=== PATIENT | male | born 1955 | race Caucasian/White ===

== ENCOUNTER 2016-12-05 23:56 | Emergency (ER) | payer OTHER ==
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
[2016-12-06 01:02] VITALS: BP 127/84
--- NOTE | 2016-12-06 07:50 | RAD ---
INDICATION: Injury. Sternal pain COMPARISON: None TECHNIQUE: AP, lateral, and oblique views were obtained. FINDINGS: There is no plain radiographic evidence of a sternal fracture. If there is persistent concern, CT is more sensitive in evaluating the sternum.. There is a mild underlying scoliotic deformity. The soft tissues are normal IMPRESSION: NO ACUTE STERNAL FRACTURE IS IDENTIFIED.
== END 2016-12-06 01:01 | disposition home or self-care (01) ==
LOC: ED 23:56
DX: S20.219A Contusion of unspecified front wall of thorax, initial encounter (principal); W50.0XXA Accidental hit or strike by another person, initial encounter; Y93.75 Activity, martial arts; Y92.89 Other specified places as the place of occurrence of the external cause
CPT/HCPCS: 71120; 99282

== ENCOUNTER 2019-04-08 20:02 | Emergency (ER) | payer OTHER ==
--- OUTSIDE RECORDS SUMMARY | 2019-04-08 20:08 | XMS REPORT | Continuity of Care Document ---
:1955 External Reference #:[id number] Author Name Eva Owusu, [facility] Address [address] [place] [id number] Problems Active Problems Provider Date Tubular adenoma of colon Leonel Lofton MD Onset: 01/22/2019 Social History Type Date Description Comments Sex Unknown Allergies, Adverse Reactions, Alerts Active Allergies Reaction Severity Comments Date IVP Dye Anaphylaxis due to substance Severe 12/28/2018 Medications Active Medications SIG Qnty Indications Ordering Provider Date Denavir apply every 2 10gm Marla Powell MD 02/21/2019 1% Cream hours while awake for 4 days starting at first sign of cold sore History Medications No Active Medications Leonel Lofton MD 01/22/2019 - 02/21/2019 Immunizations CPT Code Status Date Vaccine Lot # [id number] Given 02/06/2019 Shingrix - Shingles vaccine, Herpes Zoster [id number] Given 01/22/2019 Flu < 65 years [id number] 85852 Given 02/22/2017 Influenza Virus Vaccine, Quadrivalent, Split, Im Use 0.25ML 85287 Given 02/22/2017 Influenza Virus Vaccine, Quadrivalent, Split, Im Use 0.25ML 47997 Given 02/22/2017 Influenza Virus Vaccine, Quadrivalent, Split, Im Use 0.25ML 31596 Given 02/22/2017 Flu < 65 years 61977 Given 02/22/2017 Influenza Virus Vaccine, Quadrivalent, Split, Preservative Free 61673 Given 02/22/2017 Flumist 41523 Given 02/22/2017 Flu High Dose 97771 Given 02/22/2017 Influenza Virus Vaccine, Split, Preserv Free, Intradermal Use 07808 Given 12/30/2014 Influenza Virus Vaccine, Quadrivalent, Split, Im Use 0.25ML 93323 Given 12/30/2014 Flu High Dose 64882 Given 12/30/2014 Flumist 20854 Given 12/30/2014 Influenza Virus Vaccine, Quadrivalent, Split, Im Use 0.25ML 28573 Given 12/30/2014 Influenza Virus Vaccine, Quadrivalent, Split, Im Use 0.25ML 06519 Given 12/30/2014 Influenza Virus Vaccine, Quadrivalent, Split, Preservative Free 21571 Given 12/30/2014 Flu < 65 years 57009 Given 01/30/2013 Influenza Virus Vaccine Split Virus Intramuscular Use 0.5ML 05550 Given 01/30/2013 Flu High Dose 49809 Given 01/30/2013 Flumist 96703 Given 01/30/2013 Influenza Virus Vaccine, Quadrivalent, Split, Im Use 0.25ML 56707 Given 01/30/2013 Influenza Virus Vaccine, Quadrivalent, Split, Im Use 0.25ML 58415 Given 01/30/2013 Influenza Virus Vaccine, Quadrivalent, Split, Preservative Free 06708 Given 01/30/2013 Influenza Virus Vaccine, Quadrivalent, Split, Im Use 0.25ML 25680 Given 01/30/2013 Flu < 65 years 22326 Given 02/23/2012 Influenza Virus Vaccine, Quadrivalent, Split, Im Use 0.25ML 24799 Given 02/23/2012 Influenza Virus Vaccine, Quadrivalent, Split, Im Use 0.25ML 75247 Given 02/23/2012 Influenza Virus Vaccine, Quadrivalent, Split, Im Use 0.25ML 41355 Given 02/23/2012 Flu < 65 years 52846 Given 02/23/2012 Influenza Virus Vaccine, Quadrivalent, Split, Preservative Free 11670 Given 02/23/2012 Flumist 24568 Given 02/23/2012 Flu High Dose 11764 Given 09/23/2011 Tdap - Boostrix/Adacel 54953 Given 02/22/2011 Influenza Virus Vaccine, Quadrivalent, Split, Im Use 0.25ML 66490 Given 02/22/2011 Influenza Virus Vaccine, Quadrivalent, Split, Im Use 0.25ML 22912 Given 02/22/2011 Influenza Virus Vaccine, Quadrivalent, Split, Im Use 0.25ML 46352 Given 02/22/2011 Flu < 65 years 03192 Given 02/22/2011 Influenza Virus Vaccine, Quadrivalent, Split, Preservative Free 89501 Given 02/22/2011 Flumist 12025 Given 02/22/2011 Flu High Dose 15794 Refused 08/11/2015 Influenza Virus Vaccine, Quadrivalent, Split, Im Use 0.25ML Vital Signs Date Vital Result Comment 04/04/2019 10:02am BP Systolic 110 mmHg BP Diastolic 64 mmHg Heart Rate 82 /min Body Temperature 98.2 F O2 % BldC Oximetry 98 % 01/14/2019 9:13am BP Systolic 110 mmHg BP Diastolic 70 mmHg Height 65 inches 5'5" Weight 142.00 lb Heart Rate 63 /min Body Temperature 97.3 F O2 % BldC Oximetry 96 % BMI (Body Mass Index) 23.6 kg/m2 Abdominal Girth Measurement 34.25 inches Results Test Acquired Date Facility Test Result H/L Range Note Laboratory test 04/04/2019 [facility] Rapid Strep A <pending> finding [address] [place] [address] [phone] Laboratory test 04/04/2019 [facility] Rapid Strep negative finding ( )- - A Laboratory test 01/22/2019 [facility] Surgical SEE RESULT 1 , [address] [place] [address] [phone] Laboratory test 01/14/2019 [facility] Glucose, 93 finding ( )- - Fingerstick CF Lipid Panel 01/14/2019 [facility] Cholesterol 165 ( )- - Total Mass/Vol Cholester/HDL Molecular Ratio 4.0 HDL Cholesterol QN Ser/PL [facility] 41 LDL Cholesterol Mass/Vol 106 Triglycerides QN Ser/PLS [facility] 87 1 [id number] 2 SEE RESULT BELOW Name: RUDY ROBLES : [address]: Leonel Lofton MD Acct: [id number] Unit: [id number] AGE: 63 Location: [facility] Re01/22/19 SEX: M Status: REG REF SPEC: [id number] RAQUEL: 01/22/19 [facility] DR: Leonel Lofton MD REQ: [id number] RECD: 01/22/19 STATUS: SOUT _ ORDERED: LEVEL 4 COMMENTS: [id number] FINAL DIAGNOSIS Skin, left upper chest, excisional biopsy: -- Seborrheic keratosis, focally inflamed. CLINICAL HISTORY Slowly growing dark lesion with itching PRE-OPERATIVE DIAGNOSIS Seborrheic keratosis GROSS DESCRIPTION The specimen is received in formalin with no source identified and a requisition labeled, Skin Left Upper Chest, and consists of a 1.1 by up to 0.8 cm reynolds-keating ovoid hairbearing skin shave with a central 0.8 x 0.7 x 0.3 cm reynolds nodule. The specimen is inked, serially sectioned and entirely submitted in one cassette. Signed by and Reported on: Valorie Pratt MD 01/24/19 1137 END OF REPORT DEPARTMENT OF PATHOLOGY, [address] [place] [address] Karan Hawk M.D. Director [facility] # [id number] Procedures Date Code Description Status 01/22/2019 02977 Admin Patient Focused Health Risk Assessment Instrument Completed 01/22/2019 28539 Shave Skin Lesion .6-1CM Trunk/Arm/Leg Completed Medical Devices Description No Information Available Encounters Type Date Location Provider Dx Diagnosis Office Visit 04/04/2019 [facility] OLIVERIO Portillo J02.9 Acute pharyngitis, 9:45a unspecified Office Visit 01/22/2019 [facility] Brendon Lofton MD Z00.00 Encntr for general 11:30a adult medical exam w/o abnormal findings D48.5 Neoplasm of uncertain behavior of skin Z23 Encounter for immunization Assessments Date Code Description Provider 04/04/2019 J02.9 Acute pharyngitis, unspecified OLIVERIO Portillo 02/06/2019 Z23 Encounter for immunization Nurse 01/22/2019 Z00.00 Encounter for general adult medical examination Leonel Lofton MD without abnormal findings 01/22/2019 D48.5 Neoplasm of uncertain behavior of skin Leonel Lofton MD 01/22/2019 Z23 Encounter for immunization Leonel Lofton MD 01/14/2019 Z00.00 Encounter for general adult medical examination Nurse without abnormal findings 01/14/2019 Z68.23 Body mass index (BMI) 23.0-23.9, adult Leonel Lofton MD Plan of Treatment 04/04/2019 - OLIVERIO PortilloJ02.9 Acute pharyngitis, unspecifiedNew Labs:[facility] Rapid Strep A, Ordered: 04/04/19 Functional Status Description No Information Available Mental Status Description No Information Available Referrals Description No Information Available
[2019-04-08 20:14] VITALS: BP 131/78
--- NOTE | 2019-04-08 20:25 | UC ---
Respiratory Complaint HPI - HPI Summary HPI Summary: The patient is a 64-year-old male with a week to 10 day history of cough and congestion. The first few days of his illness he was febrile. Since then he has had a persistent cough is sometimes productive of phlegm. He presents here because the last day or 2 he has been unable to sleep due to the cough. He has no chest pain or shortness of breath. He denies any fever or chills except during the first few days of this illness. - History of Current Complaint Chief Complaint: UCGeneralIllness Stated Complaint: COLD SYMPTOMS Time Seen by Provider: 04/08/19 20:17 Hx Obtained From: Patient Onset/Duration: Gradual Onset Timing: Constant Severity Initially: Mild Severity Currently: Moderate Pain Intensity: 0 Pain Scale Used: 0-10 Numeric Character: Cough: Productive Aggravating Factors: Recumbent Position Alleviating Factors: Nothing Associated Signs And Symptoms: Positive: Nasal Congestion - Allergies/Home Medications Allergies/Adverse Reactions: Allergies Allergy/AdvReac Type Severity Reaction Status Date / Time IV contrast Allergy Unknown Uncoded 04/08/19 20:13 Reaction Details Home Medications: Home Medications Guaifen/Dextromethorphan/PE [Mucinex Fast-Max Severe C 5-10-200 mg] 1 tab PO DAILY WITH MEAL 04/08/19 [History Confirmed 04/08/19] PMH/Surg Hx/FS Hx/Imm Hx Previously Healthy: Yes - Surgical History Surgical History: Yes Surgery Procedure, Year, and Place: tonsils; vasectomy; wisdom teeth; ACL RECONSTRUCTION - Family History Known Family History: Positive: None Negative: Cardiac Disease - Social History Alcohol Use: Weekly Substance Use Type: None Smoking Status (MU): Never Smoked Tobacco When Did the Patient Quit Smoking/Using Tobacco: 40 YRS AGO Review of Systems All Other Systems Reviewed And Are Negative: Yes Constitutional: Positive: Negative Skin: Positive: Negative Eyes: Positive: Negative ENT: Positive: Sinus Congestion Respiratory: Positive: Cough Cardiovascular: Positive: Negative Gastrointestinal: Positive: Negative Genitourinary: Positive: Negative Motor: Positive: Negative Neurovascular: Positive: Negative Musculoskeletal: Positive: Negative Neurological: Positive: Negative Psychological: Positive: Negative Physical Exam Triage Information Reviewed: Yes Appearance: Well-Appearing, No Pain Distress, Well-Nourished Vital Signs: Initial Vital Signs Temp 98.8 F 12/16/19 20:10 Pulse 68 04/08/19 20:10 Resp 18 04/08/19 20:10 BP 131/78 04/08/19 20:10 Pulse Ox 98 04/08/19 20:10 Vital Signs Reviewed: Yes Eyes: Positive: Conjunctiva Clear ENT: Positive: Hearing grossly normal, Nasal congestion. Negative: Nasal drainage, Tonsillar swelling, Tonsillar exudate, Trismus, Sinus tenderness Neck: Positive: Supple, Nontender, No Lymphadenopathy Respiratory: Positive: No respiratory distress, No accessory muscle use, Wheezing - with forced expiration/bronchospastic cough Respiratory Course/Dx - Differential Dx/Diagnosis Provider Diagnosis: Viral bronchitis Discharge ED - Sign-Out/Discharge Documenting (check all that apply): Patient Departure All imaging exams completed and their final reports reviewed: No Studies - Discharge Plan Condition: Stable Disposition: HOME Patient Education Materials: Bronchospasm (ED), How to Use a Metered-Dose Inhaler and a Spacer (ED) Referrals: Leonel Lofton MD [Primary Care Provider] - 4 Days (if not better) - Billing Disposition and Condition Condition: STABLE Disposition: Home
[2019-04-08] MEDS ORDERED: Benzonatate CAP* 100 MG PO ONE (20:33)
[2019-04-08] MEDS ORDERED: Albuterol HFA INHALER* 8 gm MDI INH ONE (20:33)
[2019-04-08] MEDS ORDERED: predniSONE TAB* 20 MG PO ONE (20:34)
== END 2019-04-08 20:52 | disposition home or self-care (01) ==
LOC: UCEAST 20:02
DX: J20.8 Acute bronchitis due to other specified organisms (principal)
CPT/HCPCS: 99212; A9270-GY; G0463; J7512